=== PATIENT | female | born 1935 | race Caucasian/White ===

== ENCOUNTER 2023-02-13 13:09 | Outpatient (REF) | payer MEDICARE, SELFPAY ==
[2023-02-13 15:02] LABS: Anion Gap 16 (12-20); Blood Urea Nitrogen 18 mg/dL (9-16); Calcium 9.6 mg/dL (8.4-10.2); Carbon Dioxide 24 mmol/L (22-29); Chloride 105 mmol/L (96-108); Estimated Glomerular Filt Rate > 60; Glucose Random 89 mg/dL (60-115); Potassium 4.4 mmol/L (3.3-5.1); Sodium 141 mmol/L (135-145)
[2023-02-13 15:10] LABS: T4 Thyroxine 6.4 ug/dL (4.5-12.0)
[2023-02-13 15:25] LABS: Folate 9.6 ng/mL (> or = 4.0); Vitamin B12 778 pg/mL (200-900)
== END 2023-02-13 13:10 | disposition home or self-care (01) ==
LOC: HO.LAB 13:09
PROVIDERS: Visit Provider Psychiatry & Neurology Neurology
DX: G31.84 Mild cognitive impairment of uncertain or unknown etiology (principal)
CPT/HCPCS: 36415; 80048; 82607; 82746; 84436; 84443

== ENCOUNTER 2023-09-25 16:34 | Emergency (ER) | payer MEDICARE, SELFPAY ==
--- NOTE | ~2023-09-25 | US_ITS ---
EXAMINATION: US VENOUS ULTRASOUND WITH DOPPLER LOWER EXTREMITY, RIGHT CLINICAL INFORMATION: Right lower extremity swelling COMPARISON: None available. TECHNIQUE: Ultrasound of the deep veins is performed from the hip to the calf with compression sonography and color and pulse Doppler assessment. Spectral analysis with color-flow imaging is performed. FINDINGS: There is normal venous compression and respiratory variation and augmented flow. The visualized common femoral vein, superficial femoral vein, profunda femoral vein, popliteal vein, and the trifurcation region shows no evidence of deep venous thrombosis. There is no significant popliteal fossa cyst. Contralateral common femoral vein is patent. If the patient's symptoms persist, followup ultrasound in 5 days 7 days might be of value to exclude proximal propagation from a non-visualized calf vein. US/US venous duplex LE RT IMPRESSION: No DVT demonstrated in the right lower extremity.
--- NOTE | ~2023-09-25 | XR_ITS ---
EXAMINATION: XR TIBIA AND FIBULA, RIGHT CLINICAL INFORMATION: Wound. COMPARISON: None available. TECHNIQUE: AP and lateral views of the right tibia and fibula were obtained. FINDINGS: Significant soft tissue swelling. No unexpected radiopaque foreign bodies. Mild heterogeneity of the bone marrow, limiting evaluation of subtle details. No fractures or subluxation. No discrete erosive/destructive osseous abnormalities to indicate osteomyelitis. XR/XR tibia fibula RT 2V IMPRESSION: 1. Significant soft tissue swelling. 2. No acute fractures or subluxation. 3. No definite radiographic evidence of osteomyelitis. Further evaluation with MRI as clinically indicated.
--- NOTE | ~2023-09-25 | XR_ITS ---
EXAMINATION: XR CHEST CLINICAL INFORMATION: Lower extremity edema. COMPARISON: None available. TECHNIQUE: 2 views of the chest were obtained. FINDINGS: Left-sided pacer with leads projecting over the expected location of the right atrium and right ventricle. Prominent cardiomediastinal silhouette. No focal consolidation, pleural effusion or pneumothorax. Slightly increased interstitial markings that could indicate some degree of pulmonary edema. Equivocal nodular-like opacity projecting over the right upper lobe in between the posterior fifth and sixth ribs. Thoracic spondylosis. No acute osseous findings. Surgical clip projecting over the right breast/axillary region. XR/XR chest 2V IMPRESSION: 1. Findings suggestive of mild pulmonary edema. 2. Nodular-like opacity projecting over the right upper lobe, recommend further evaluation with outpatient CT chest.
[2023-09-25 17:17] VITALS: BP 133/61; PULSE 69; RESP 20; TEMP 36.6; O2SAT 93; BMI 32.8
--- NOTE | 2023-09-25 17:18 | ED.GENADULT ---
HPI - General Adult General Chief complaint: Wound/Laceration Stated complaint: referred by PCP, needs IV antibiotics Time Seen by Provider: 09/26/23 01:47 Related Data Previous Rx's Medication Instructions Recorded amoxicillin 875 mg-potassium 1 tab PO BID Skin infection #20 09/26/23 clavulanate 125 mg tablet tabs Allergies Allergy/AdvReac Type Severity Reaction Status Date / Time No Known Allergies Allergy Verified 09/25/23 17:23 [facility] Social History Social History Smoked in Last 30 Days: No Use of substances other than those prescribed or required for medical reasons: No Advance Directives: No Advance Directives Information Provided: Yes Physical Exam ED Vital Signs: Vital Signs - 24 hr 09/25/23 17:17 09/25/23 20:31 09/26/23 01:05 Temperature 97.8 F 98.2 F 97.1 F Pulse Rate 69 89 79 Respiratory Rate 20 20 12 Blood Pressure 133/61 131/51 L 155/50 H Pulse Oximetry 93 93 92 Oxygen Delivery Method Room Air Room Air Room Air BMI result Body Mass Index 32.8 Course Course Course Narrative: This is an RME: Additional HPI, ROS, PE not included below will be deferred to primary provider. This is a 87-year-old female, with a past medical history a fib with pacemaker on eliquis, breast cancer, htn, hld, with a complaint of right lower extremity wound. Chronic wound has been managed by VNA services. PCP told patient to come to the ER for further evaluation given worsening swelling. R lower extremity with 3+ pitting edema and slight erythema. She has a poor historian. Typically goes to [facility] for her care. No chest pain or shortness a breath Plan: Labs, request [facility] records Medical Decision Making Lab Data 09/25/23 18:56 09/25/23 18:56 Labs: Lab Results 09/25/23 Range/Units 18:56 WBC 8.3 (4.8-10.8) X10*3/uL RBC 3.79 L (4.20-5.50) X10*6/uL Hgb 11.5 L (12.0-16.0) g/dl Hct 35.7 L (37.0-47.0) % MCV 94.2 (80.0-98.0) fL MCH 30.3 (27.0-33.0) pg MCHC 32.2 (31.0-35.0) g/dl RDW 14.2 (11.0-16.0) % Plt Count 278 (160-400) X10*3/uL MPV 10.0 (9.4-12.3) fL Immature Gran % (Auto) 0.4 (0.0-0.4) % Neut % (Auto) 74.8 H (45-73) % Lymph % (Auto) 15.4 L (20-40) % [place] % (Auto) 7.2 (2-11) % Eos % (Auto) 1.8 (0-4) % Baso % (Auto) 0.4 (0-2) % Lymph # (Auto) 1.3 (1.2-4.9) X10*3/uL [place] # (Auto) 0.6 (0.1-1.2) X10*3/uL Eos # (Auto) 0.2 (0.0-0.4) X10*3/uL Baso # (Auto) 0.0 (0.0-0.2) X10*3/uL Abs Immat Gran (auto) 0.03 (0.00-0.03) X10*3/uL Absolute Neuts (auto) 6.2 (2.0-8.3) x10*3/uL Absolute Nucleated RBC 0.000 (0.0-0.012) X10*3/uL Nucleated RBC % (auto) 0.0 (0.0-0.2) /100WBC Sodium 140 (135-145) mmol/L Potassium 4.1 (3.3-5.1) mmol/L Chloride 101 (96-108) mmol/L Carbon Dioxide 28 (22-29) mmol/L Anion Gap 15 (12-20) BUN 29 H (9-16) mg/dL Creatinine 0.99 (0.5-1.4) mg/dL Estim Creat Clear Calc 44.2 Estimated GFR 53 Random Glucose 99 (60-115) mg/dL Calcium 10.0 (8.4-10.2) mg/dL Magnesium 2.3 (1.6-2.6) mg/dL Total Bilirubin 0.2 (0.0-1.0) mg/dL Direct Bilirubin < 0.2 (0.0-0.5) mg/dL AST 15 (5-31) U/L ALT 12 (0-31) U/L Alkaline Phosphatase 107 (39-117) U/L B-Natriuretic Peptide 23 (<100) pg/mL Total Protein 8.1 H (6.5-8.0) g/dL Albumin 4.3 (3.5-5.0) g/dL Lipase 43 (8-78) U/L Discharge Plan Discharge Clinical Impression: Chronic wound Patient Disposition: Home, Self-Care Instructions: Wound Infection (DC) Prescriptions: New amoxicillin-pot clavulanate 875-125 mg tablet 1 tab PO BID Qty: 20 0RF Referrals: Lolis Floyd MD [Primary Care Provider] - 09/26/23
[2023-09-25 19:04] LABS: MANUAL DIFF FLAG NO
[2023-09-25 19:08] LABS: Basophils Percent Auto 0.4 % (0-2); Eosinophils Absolute Auto 0.2 X10*3/uL (0.0-0.4); Eosinophils Percent Auto 1.8 % (0-4); Hematocrit 35.7 % (37.0-47.0); Hemoglobin 11.5 g/dl (12.0-16.0); Imm Gran Abs Auto 0.03 X10*3/uL (0.00-0.03); Imm Gran Pct Auto 0.4 % (0.0-0.4); Lymphocytes Absolute Auto 1.3 X10*3/uL (1.2-4.9); Lymphocytes Percent Auto 15.4 % (20-40); Mean Corpuscular HGB Conc 32.2 g/dl (31.0-35.0); Mean Corpuscular Hemoglobin 30.3 pg (27.0-33.0); Mean Corpuscular Volume 94.2 fL (80.0-98.0); Monocytes Absolute Auto 0.6 X10*3/uL (0.1-1.2); Monocytes Percent Auto 7.2 % (2-11); Neutrophils Absolute Auto 6.2 x10*3/uL (2.0-8.3); Neutrophils Percent Auto 74.8 % (45-73); Platelet Count 278 X10*3/uL (160-400); Red Blood Count 3.79 X10*6/uL (4.20-5.50); Red Cell Distribution Width 14.2 % (11.0-16.0); White Blood Count 8.3 X10*3/uL (4.8-10.8)
[2023-09-25 19:18] LABS: Alanine Aminotransferase 12 U/L (0-31); Albumin Level 4.3 g/dL (3.5-5.0); Alkaline Phosphatase 107 U/L (39-117); Anion Gap 15 (12-20); Aspartate Amino Transferase 15 U/L (5-31); Bilirubin Direct < 0.2 mg/dL (0.0-0.5); Bilirubin Total 0.2 mg/dL (0.0-1.0); Blood Urea Nitrogen 29 mg/dL (9-16); Carbon Dioxide 28 mmol/L (22-29); Chloride 101 mmol/L (96-108); Creatinine Clr Calc Pharmacy 44.2; Estimated Glomerular Filt Rate 53; Glucose Random 99 mg/dL (60-115); Lipase 43 U/L (8-78); Magnesium 2.3 mg/dL (1.6-2.6); Potassium 4.1 mmol/L (3.3-5.1); Sodium 140 mmol/L (135-145); Total Protein 8.1 g/dL (6.5-8.0)
[2023-09-25 19:24] LABS: B Type Natriuretic Peptide 23 pg/mL (<100)
[2023-09-25 20:31] VITALS: BP 131/51; PULSE 89; RESP 20; TEMP 36.8; O2SAT 93
--- NOTE | 2023-09-25 20:43 | PC.NURSE ---
This RN just spent 15 minutes on the phone with family member who have concerns of sepsis, that she has been in the waiting room for hours, that she has dementia, stating that if she was at [facility] she would have already been treated. This Rn spent extensive time going over all labs/vitals/scans that have not met sepsis protocol at this time, scans clear at this time. US order placed by PA at this time. Family alerted of current ED situation. Pt seen at [facility] for all other issues, we did obtain records of patient. Charge nurse aware.
--- NOTE | 2023-09-25 23:57 | PC.NURSE ---
RN out to the waiting room per registration request to answer family member's question. Upon arrival to patient and family member, pt noted to be seated in wheelchair well appearing and without distress. Family member present reports patient has missed her 4pm and her 8pm medication doses adding that the facility was supposed to fax over her med orders . RN confirmed with secretary office clerk that there have been no faxes received just yet and when attempts were made to get in contact with a staff member from the facility there was no answer and only an option to leave a VM. RN to notify the family
[2023-09-26 01:05] VITALS: BP 155/50; PULSE 79; RESP 12; TEMP 36.2; O2SAT 92
--- NOTE | 2023-09-26 02:08 | ED.WOUNDLAC ---
HPI - Wound/Laceration General Chief Complaint: Wound/Laceration Stated Complaint: referred by PCP, needs IV antibiotics Time Seen by Provider: 09/26/23 01:47 History of Present Illness HPI narrative: Patient is an 87-year-old female has a VNA that comes to her house to check on her wound. Patient's primary physician concerned that the wound might need an IV antibiotics. Normally gets seen at [facility]. She has a history of dementia. Came in for further evaluation. No fever no chills. Positive history of congestive heart failure. Positive history of being on Eliquis. Positive history of having a chronic wound to the leg. Related Data Allergies Allergy/AdvReac Type Severity Reaction Status Date / Time No Known Allergies Allergy Verified 09/25/23 17:23 Review of Systems Review of Systems: No fever no chills no chest pain no shortness of breath no diaphoresis Yes all other systems are reviewed and are negative [facility] Past Medical History Attestation statement: The following information was validated with the patient. Social History Social History Smoked in Last 30 Days: No Use of substances other than those prescribed or required for medical reasons: No Advance Directives: No Advance Directives Information Provided: Yes Physical Exam Vital Signs: Vital Signs: Last Vital Signs Temp 97.1 F 09/26/23 01:05 Pulse 79 09/26/23 01:05 Resp 12 09/26/23 01:05 BP 155/50 H 09/26/23 01:05 Pulse Ox 92 09/26/23 01:05 O2 Del Method Room Air 09/26/23 01:05 BMI result Body Mass Index 32.8 Appearance: Alert. Oriented X3. No acute distress. Eyes: Pupils equal, round and reactive to light. ENT: Pharynx normal. Neck: Normal inspection. Neck supple. No lymph nodes noted. No crepitus CVS: Normal heart rate and rhythm. Pulses normal. Normal S1 and S2 Respiratory: No respiratory distress. Breath sounds normal. No Wheezing. No rales Abdomen: Soft and nontender. No rigidity. No distention. good BS x4 Skin: Skin warm and dry. Normal skin color. Normal skin turgor. Extremities: 2+ pitting edema bilateral lower extremity. There is an ulcer on the lateral aspect of the distal leg. Approximately 2 cm x 3 cm in size. There is granulation tissue at the bottom. There is no warmth to touch of the skin. There is a slight hue of redness noted in the leg. Distal pulses intact. Sensation intact. Neuro: Oriented X 3. No motor deficit. No sensory deficit. Moving all extermities. No slurred speech Medical Decision Making Medical Decision Making [facility] Narrative: Had a history of cellulitis in the past. The ulcer is chronic in nature. Patient's white count is 8.3. There is no shift. Patient did not meet sirs criteria. Doppler of the lower extremity was negative for any deep vein thrombosis. X-ray of the leg did not show any acute fracture. Chest x-ray showed a question mild CHF. However patient is lying flat is in no distress has a normal O2 sat. Unlikely to be an acute congestive heart failure. Had a discussion with patient and family. Will discharge patient home. Will start patient on an initial dose of IV antibiotics. Had been on Augmentin in the past with good results last year. Will start patient on a dose of Unasyn in the emergency department. A script for Augmentin will be sent. Will have patient closely follow-up tomorrow with her primary physician Differential Diagnosis Differential Diagnoses: The differential diagnosis associated with the presentation includes Lab Data [facility] Lab Attestation statement: I reviewed the patient's lab results. 09/25/23 18:56 09/25/23 18:56 Labs: Lab Results 09/25/23 Range/Units 18:56 WBC 8.3 (4.8-10.8) X10*3/uL RBC 3.79 L (4.20-5.50) X10*6/uL Hgb 11.5 L (12.0-16.0) g/dl Hct 35.7 L (37.0-47.0) % MCV 94.2 (80.0-98.0) fL MCH 30.3 (27.0-33.0) pg MCHC 32.2 (31.0-35.0) g/dl RDW 14.2 (11.0-16.0) % Plt Count 278 (160-400) X10*3/uL MPV 10.0 (9.4-12.3) fL Immature Gran % (Auto) 0.4 (0.0-0.4) % Neut % (Auto) 74.8 H (45-73) % Lymph % (Auto) 15.4 L (20-40) % [place] % (Auto) 7.2 (2-11) % Eos % (Auto) 1.8 (0-4) % Baso % (Auto) 0.4 (0-2) % Lymph # (Auto) 1.3 (1.2-4.9) X10*3/uL [place] # (Auto) 0.6 (0.1-1.2) X10*3/uL Eos # (Auto) 0.2 (0.0-0.4) X10*3/uL Baso # (Auto) 0.0 (0.0-0.2) X10*3/uL Abs Immat Gran (auto) 0.03 (0.00-0.03) X10*3/uL Absolute Neuts (auto) 6.2 (2.0-8.3) x10*3/uL Absolute Nucleated RBC 0.000 (0.0-0.012) X10*3/uL Nucleated RBC % (auto) 0.0 (0.0-0.2) /100WBC Sodium 140 (135-145) mmol/L Potassium 4.1 (3.3-5.1) mmol/L Chloride 101 (96-108) mmol/L Carbon Dioxide 28 (22-29) mmol/L Anion Gap 15 (12-20) BUN 29 H (9-16) mg/dL Creatinine 0.99 (0.5-1.4) mg/dL Estim Creat Clear Calc 44.2 Estimated GFR 53 Random Glucose 99 (60-115) mg/dL Calcium 10.0 (8.4-10.2) mg/dL Magnesium 2.3 (1.6-2.6) mg/dL Total Bilirubin 0.2 (0.0-1.0) mg/dL Direct Bilirubin < 0.2 (0.0-0.5) mg/dL AST 15 (5-31) U/L ALT 12 (0-31) U/L Alkaline Phosphatase 107 (39-117) U/L B-Natriuretic Peptide 23 (<100) pg/mL Total Protein 8.1 H (6.5-8.0) g/dL Albumin 4.3 (3.5-5.0) g/dL Lipase 43 (8-78) U/L Independent Interpretation I performed an independent interpretation of an: Plain X-Ray (X-ray of the leg was grossly negative for any acute evidence of fracture) Radiology Impression Discussion of test interpretation with radiology: I have reviewed the radiologist's reading. Radiologist Impression: I reviewed radiology's reading of the Doppler ultrasound like x-ray of the tib-fib and chest x-ray Independent Historian Clinical information obtained from an independent historian. History obtained from or confirmed by: Other (Patient's family at bedside) External Record Review No significant record here at [facility] Prescription Management I considered prescription management with: Antibiotic Chronic Conditions Chronic wound Social Determinants Patient?s care significantly limited by Social Determinants of Health including: Problems related to primary support group Discharge Plan Discharge Clinical Impression: Chronic wound Patient Disposition: Home, Self-Care Instructions: Wound Infection (DC) Referrals: Lolis Floyd MD [Primary Care Provider] - 09/26/23
[2023-09-26] MEDS: Acetaminophen 325 MG TABLET 975 MG PO (02:25)
[2023-09-26] MEDS: Ampicillin Sodium/Sulbactam Na 3 GM in 0.9 % Sodium Chloride 100 ML IV (02:27)
[2023-09-26 03:48] VITALS: BP 146/44; PULSE 87; RESP 12; TEMP 36.7; O2SAT 96
--- NOTE | 2023-09-26 04:42 | PC.NURSE ---
Pt pending transport back to Assisted living via ambulance.
[2023-09-26 05:06] VITALS: BP 151/78; PULSE 91; RESP 18; TEMP 36.7; O2SAT 92
== END 2023-09-26 05:07 | disposition home or self-care (01) ==
PROVIDERS: Physician Assistant Medical; Emergency Provider Emergency Medicine Emergency Medical Services; PCP Internal Medicine
DX: S81.811A Laceration without foreign body, right lower leg, initial encounter (principal); M79.604 Pain in right leg; I48.91 Unspecified atrial fibrillation; R60.0 Localized edema; R06.02 Shortness of breath; X58.XXXA Exposure to other specified factors, initial encounter; Y93.9 Activity, unspecified; Y92.9 Unspecified place or not applicable; Y99.8 Other external cause status; Z79.01 Long term (current) use of anticoagulants; Z79.899 Other long term (current) drug therapy
CPT/HCPCS: 36415; 71046; 73590; 80048; 80076; 83690; 83735; 83880; 85025; 93971; 96365; 99284; J0295

== ENCOUNTER 2023-11-08 15:23 | Outpatient (REF) | payer MEDICARE, SELFPAY ==
--- NOTE | ~2023-11-08 | CT_ITS ---
EXAMINATION: CT CHEST WITHOUT CONTRAST CLINICAL INFORMATION: Altered pulmonary nodule COMPARISON: Chest radiograph from 09/25/2023 TECHNIQUE: Multidetector volumetric CT imaging of the chest was done. Axial MIP volume rendering provided. Sagittal and coronal reformatted images were obtained. This CT examination was performed using dose optimization techniques as appropriate, variously including the following: *Automated exposure control *Adjustment of mA and/or kV according to patient size (this includes techniques or standardized protocols for targeted exams where dose is matched to indication/reason for exam; i.e. extremities or head) *Use of iterative reconstruction technique DLP: 181 mGy-cm FINDINGS: LUNGS/PLEURA: Emphysematous changes. Biapical pleural parenchymal scarring. Peripheral reticular nodular opacities. Mild bronchiectatic changes. 2 mm nodule right upper lobe (series 5, image 197). 2 mm nodule lateral aspect left upper lobe (series 5, image 305). Central airways are patent. No pneumothorax. No large pleural effusion. Left basilar atelectasis. MEDIASTINUM: Heart is enlarged. No pericardial effusion. Coronary artery calcifications are noted. Aorta is nonaneurysmal and demonstrates atherosclerotic calcifications. Main pulmonary artery is enlarged. No enlarged lymph nodes per size criteria. Visualized portions of the left chest wall dual-lead pacer redemonstrated. Patulous appearance of the thoracic esophagus. Elevation the right hemidiaphragm. Masslike focus right breast tissue (series 5, image 259) measuring 2.3 x 2.3 cm. Surgical clips are noted posterior to this. Correlation with recent mammography. AXILLA: Dextrocurvature of the thoracic spine osteopenia. Multilevel degenerative changes of the thoracolumbar spine. UPPER ABDOMEN: Hypodense focus along the posterior aspect of the right hepatic lobe measuring 1.0 cm demonstrating fluid attenuation statistically representing a cyst. Small hiatal hernia. Cholelithiasis without wall thickening or pericholecystic fluid. OSSEOUS STRUCTURES: Unremarkable. CT/CT chest wo IV con IMPRESSION: 1. No acute process of the chest identified. 2. Emphysematous changes. 3. Multiple bilateral pulmonary nodules the largest measuring up to 2 mm. Follow-up as per Fleischner criteria. 4. Masslike focus right breast tissue measuring 2.3 x 2.3 cm. Surgical clips are noted posterior to this. Correlation with recent mammography. 5. Hypodense focus along the posterior aspect of the right hepatic lobe measuring 1.0 cm demonstrating fluid attenuation statistically representing a cyst. 6. Small hiatal hernia. 7. Cholelithiasis without acute cholecystitis. 8. Osteopenia. Various management parameters for solitary pulmonary nodules are in the literature. According to the Fleischner Society, recommendations for pulmonary nodules are as follows: According to the UPDATED 2017 Fleischner Society recommendations, the advised follow-up imaging for solid nodules < 6 mm is: HIGH RISK PATIENT: Optional CT at 12 months.
== END 2023-11-08 15:24 | disposition home or self-care (01) ==
LOC: HO.CT 15:23
PROVIDERS: Visit Provider Physician Assistant Medical
DX: R91.1 Solitary pulmonary nodule (principal)
CPT/HCPCS: 71250